=== PATIENT | male | born 1960 | race Caucasian/White ===

== ENCOUNTER 2022-04-19 15:11 | Outpatient (CLI) | payer BC ==
[2022-04-19 15:57] LABS: #Basophils 0.1 10x3/uL (0.0-0.2); #Eosinphils 0.4 10x3/uL (0.0-0.5); #Monocytes 1.1 10x3/uL (0.0-1.1); #Neutrophils 5.3 10x3/uL (1.5-8.4); %Basophils 0.8 % (0.0-2.0); %Eosinophils 4.2 % (0.0-6.0); %Lymphocytes 19.8 % (18.0-47.0); %Monocytes 12.5 % (0.0-10.0); %Neutrophils 62.3 % (40.0-75.0); Hemoglobin 13.4 g/dL (13.5-17.5); Mean Corpuscular HGB CONC 33.8 g/dL (32.0-36.0); Mean Corpuscular Hemoglobin 34.7 pg (27.0-33.0); Mean Corpuscular Volume 102.8 fl (81.2-95.1); Mean Platelet Volume 8.2 fl (7.4-10.4); Platelet Count 357 10x3/uL (150-450); RBC Distribution Width 11.2 % (11.5-14.5); Red Blood Cell (RBC) Count 3.86 10x6/uL (4.32-5.72); White Blood Cell (WBC) Count 8.4 10x3/uL (3.5-10.5)
[2022-04-19 16:03] LABS: INR-International Normal Ratio 0.9; Prothrombin Time 10.1 sec (9.5-12.1)
[2022-04-19 16:08] LABS: Anion Gap 15 mmol/L (10-20); BUN (Urea Nitrogen) 14 mg/dL (8.4-25.7); Calc. Creatinine Clearance 0 mL/min (70-130); Carbon Dioxide 22 mmol/L (23-31); Chloride 103 mmol/L (98-107); Glucose 92 mg/dL (80-115); Potassium 4.8 mmol/L (3.5-5.1); Sodium 135 mmol/L (136-145)
[2022-04-20 00:19] LABS: SARS-CoV-2 PCR by NAA Not Detected (NotDetected)
== END 2022-04-19 15:12 | disposition home or self-care (01) ==
LOC: LABBT 15:11
PROVIDERS: ATTEND Orthopaedic Surgery
DX: Z01.812 Encounter for preprocedural laboratory examination (principal); M23.91 Unspecified internal derangement of right knee; M17.11 Unilateral primary osteoarthritis, right knee; Z20.822 Contact with and (suspected) exposure to COVID-19
CPT/HCPCS: 80048; 85025; 85610; 87081; U0003; U0005

== ENCOUNTER 2022-04-24 05:28 | Observation (INO) | payer BC ==
[2022-04-20 09:21] VITALS: BMI 22.9
[2022-04-24] MEDS ORDERED: Vancomycin 1 GM/200 ML BAG ONE (05:53)
[2022-04-24] MEDS ORDERED: Sodium Chloride 0.9% 100 ML ONE ×2 (05:53→06:51)
[2022-04-24] MEDS ORDERED: Tranexamic Acid 1,000 MG/10 ML VIAL ONE (05:53)
[2022-04-24] MEDS ORDERED: Lidocaine 1% PF 5 ML VIAL ONE (06:35)
[2022-04-24] MEDS ORDERED: ePHEDrine 50 MG/ML VIAL ONE (06:35)
[2022-04-24] MEDS ORDERED: Dexamethasone 20 MG/5 ML VIAL ONE (06:35)
[2022-04-24] MEDS ORDERED: Ondansetron PF 4 MG/2 ML Vial ONE (06:35)
[2022-04-24] MEDS ORDERED: Ketorolac Tromethamine 30 MG/ML VIAL ONE (06:35)
[2022-04-24] MEDS ORDERED: Bupivacaine HCl 0.5%/Epinephrine 1:200,000/PF 30 ml Vial ONE (06:35)
[2022-04-24] MEDS ORDERED: PROPOFOL 200 MG/20 ML VIAL ONE (06:35)
[2022-04-24] MEDS ORDERED: Fentanyl 100 MCG/2 ML VIAL ONE (06:38)
[2022-04-24] MEDS ORDERED: Midazolam HCl 2 mg/2 ml Vial ONE (06:38)
[2022-04-24] MEDS ORDERED: Bupivacaine PF 0.5% 30 ML VIAL ONE (06:46)
[2022-04-24] MEDS ORDERED: CEFAZOLIN 2 GM VIAL ONE (06:51)
[2022-04-24] MEDS ORDERED: fentaNYL Citrate/PF 100 MCG/2 ML SYRINGE ONE ×2 (07:14→08:22)
[2022-04-24] MEDS ORDERED: Fentanyl 100 MCG/2 ML VIAL IV PRN (07:17)
[2022-04-24] MEDS ORDERED: Ropivacaine 0.2% 550 ML 550 ML NERVE BLCK SCH (07:30)
[2022-04-24] MEDS ORDERED: Zolpidem Tartrate 5 MG TAB PO PRN (07:30)
[2022-04-24] MEDS ORDERED: traMADol HCl 50 MG TAB PO PRN ×2 (07:30)
[2022-04-24] MEDS ORDERED: Ondansetron PF 4 MG/2 ML Vial IVP PRN (07:30)
[2022-04-24] MEDS ORDERED: Promethazine HCl 25 MG/ML VIAL IM PRN ×2 (07:30→07:56)
[2022-04-24] MEDS ORDERED: Meperidine HCl/PF 25 MG/ML VIAL SLOW IVP PRN (07:56)
[2022-04-24] MEDS ORDERED: HYDROmorphone 2 MG/ML VIAL SLOW IVP PRN (07:56)
[2022-04-24] MEDS ORDERED: Promethazine HCl 25 MG/ML VIAL IVPB PRN (07:56)
[2022-04-24] MEDS ORDERED: HYDROmorphone 0.5 MG/0.5 ML SYRINGE ONE ×2 (09:05→09:30)
[2022-04-24] MEDS ORDERED: ceFAZolin 2 GM/Dextrose 50 ML 2 GM in Premix Bag 1 BAG IVPB SCH (09:16)
[2022-04-24] MEDS ORDERED: Acetaminophen 325 MG TAB PO PRN (09:16)
[2022-04-24] MEDS: Sodium Chloride 0.9% 1,000 ML IV SCH ×2 (10:59→23:59)
[2022-04-24] MEDS: Ketorolac Tromethamine 30 MG/ML VIAL IVP SCH ×2 (11:20→17:18)
[2022-04-24] MEDS: CEFAZOLIN 2 GM in Sodium Chloride 0.9% 100 ML IVPB SCH ×2 (13:51→21:07)
[2022-04-24] MEDS: HYDROcodone/Acetaminophen 10/325 mg Tablet PO PRN ×3 (13:54→21:10)
[2022-04-24] MEDS ORDERED: Vancomycin 1 GM in Premix Bag 1 BAG IVPB SCH (18:00)
[2022-04-24] MEDS: Aspirin 81 mg Enteric Coated Tablet PO SCH (21:07)
[2022-04-24] MEDS: busPIRone HCl 10 MG TAB PO SCH (21:08)
[2022-04-24] MEDS: Ferrous Gluconate 324 MG TAB PO SCH (21:09)
[2022-04-24] MEDS: Senokot S 8.6-50 MG TAB PO SCH (21:09)
[2022-04-25] MEDS: Ketorolac Tromethamine 30 MG/ML VIAL IVP SCH ×3 (00:18→12:07)
[2022-04-25 06:13] LABS: Hemoglobin 10.4 g/dL (14.0-18.0); Mean Corpuscular HGB CONC 33.2 g/dL (32.0-36.0); Mean Corpuscular Hemoglobin 35.9 pg (27.0-31.0); Mean Platelet Volume 5.6 fL (7.4-10.4); Platelet Count 308 thou/uL (130-400); RBC Distribution Width 10.6 % (11.5-14.5); Red Blood Cell (RBC) Count 2.91 mill/uL (4.70-6.10); White Blood Cell (WBC) Count 10.1 thou/uL (4.8-10.8)
[2022-04-25] MEDS: Sodium Chloride 0.9% 1,000 ML IV SCH ×2 (06:33→16:13)
[2022-04-25] MEDS ORDERED: Multivitamin W/ Minerals 1 TAB PO SCH (09:00)
[2022-04-25] MEDS: Aspirin 81 mg Enteric Coated Tablet PO SCH (10:29)
[2022-04-25] MEDS: Ferrous Gluconate 324 MG TAB PO SCH (10:29)
[2022-04-25] MEDS: Senokot S 8.6-50 MG TAB PO SCH (10:29)
[2022-04-25] MEDS: busPIRone HCl 10 MG TAB PO SCH (10:29)
[2022-04-25] MEDS: HYDROcodone/Acetaminophen 10/325 mg Tablet PO PRN ×2 (12:04→16:10)
[2022-04-25 15:19] VITALS: BP 144/74; TEMP 97.6
== END 2022-04-25 17:26 | disposition home health service (06) ==
LOC: SDC 05:28 → SURG B 10:21 → EDSTATUS 15:30
PROVIDERS: ADMIT Orthopaedic Surgery; ATTEND Orthopaedic Surgery
PROC: 0SRC0J9 Replacement of Right Knee Joint with Synthetic Substitute, Cemented, Open Approach (ICD-10-PCS; principal; 2022-04-24)
PROC: 3E0T3BZ Introduction of Anesthetic Agent into Peripheral Nerves and Plexi, Percutaneous Approach (ICD-10-PCS; 2022-04-24)
DX: M17.11 Unilateral primary osteoarthritis, right knee (principal); M21.161 Varus deformity, not elsewhere classified, right knee; I10 Essential (primary) hypertension; Z79.1 Long term (current) use of non-steroidal anti-inflammatories (NSAID); Z79.899 Other long term (current) drug therapy; Z88.8 Allergy status to other drugs, medicaments and biological substances; Z91.041 Radiographic dye allergy status; Z91.048 Other nonmedicinal substance allergy status; Z98.1 Arthrodesis status
CPT/HCPCS: 36415; 85027; 96374; 96375; 96376; A4306; C1713; C1776; G0378; J1100; J1170; J1885; J2250; J2405; J2704; J2795; J3010; J3370; J3490; S0020

== ENCOUNTER 2023-11-05 08:02 | Outpatient (CLI) | payer BC, MEDICARE ==
[2023-11-05 09:47] LABS: #Basophils 0.1 10x3/uL (0.0-0.2); #Eosinphils 0.8 10x3/uL (0.0-0.5); #Monocytes 0.9 10x3/uL (0.0-1.1); #Neutrophils 3.4 10x3/uL (1.5-8.4); %Basophils 1.2 % (0.0-2.0); %Eosinophils 12.7 % (0.0-6.0); %Lymphocytes 19.1 % (18.0-47.0); %Neutrophils 52.4 % (40.0-75.0); Hematocrit 39.6 % (38.8-50.0); Hemoglobin 14.1 g/dL (13.5-17.5); Mean Corpuscular HGB CONC 35.6 g/dL (32.0-36.0); Mean Corpuscular Hemoglobin 35.1 pg (27.0-33.0); Mean Corpuscular Volume 98.5 fl (81.2-95.1); Mean Platelet Volume 8.4 fl (7.4-10.4); Platelet Count 411 10x3/uL (150-450); RBC Distribution Width 11.3 % (11.5-14.5); Red Blood Cell (RBC) Count 4.02 10x6/uL (4.32-5.72); White Blood Cell (WBC) Count 6.6 10x3/uL (3.5-10.5)
[2023-11-05 10:07] LABS: Anion Gap 16 mmol/L (10-20); BUN (Urea Nitrogen) 8 mg/dL (8.4-25.7); Calc. Creatinine Clearance 0 mL/min (70-130); Calcium 9.3 mg/dL (7.8-10.44); Carbon Dioxide 21 mmol/L (23-31); Chloride 100 mmol/L (98-107); Estimated GFR 100; Glucose 93 mg/dL (80-115); Potassium 4.6 mmol/L (3.5-5.1); Sodium 132 mmol/L (136-145)
[2023-11-05 10:12] LABS: Prothrombin Time 10.3 sec (9.5-12.1)
== END 2023-11-05 08:03 | disposition home or self-care (01) ==
LOC: LABBT 08:02
PROVIDERS: ATTEND Orthopaedic Surgery
DX: Z01.818 Encounter for other preprocedural examination (principal); S46.011A Strain of muscle(s) and tendon(s) of the rotator cuff of right shoulder, initial encounter
CPT/HCPCS: 80048; 85025; 85610; 93005; 93010

== ENCOUNTER 2023-11-07 05:44 | Observation (INO) | payer BC, MEDICARE ==
[2023-11-07] MEDS ORDERED: Tranexamic Acid 1,000 MG/10 ML VIAL ONE (06:10)
[2023-11-07] MEDS ORDERED: Vancomycin 1 GM/200 ML (FROZEN) BAG ONE (06:10)
[2023-11-07] MEDS ORDERED: Sodium Chloride 0.9% 100 ML ONE ×2 (06:10→06:50)
[2023-11-07] MEDS ORDERED: Ropivacaine 0.2% HCl/PF 20 ML ONE (06:25)
[2023-11-07] MEDS ORDERED: fentaNYL 50 mcg/mL 1 mL Vial ONE ×2 (06:25→10:43)
[2023-11-07] MEDS ORDERED: Midazolam HCl 2 mg/2 ml Vial ONE (06:25)
[2023-11-07] MEDS ORDERED: Ropivacaine 0.5% HCl/PF (150 MG/30 ML VIAL) ONE (06:25)
[2023-11-07] MEDS ORDERED: Lidocaine 1% (PF) 30 ML VIAL ONE (06:40)
[2023-11-07] MEDS ORDERED: CEFAZOLIN 2 GM VIAL ONE (06:50)
[2023-11-07] MEDS ORDERED: PROPOFOL 40 ML ONE (07:08)
[2023-11-07] MEDS ORDERED: Esmolol 100 MG/10 ML VIAL ONE (07:10)
[2023-11-07] MEDS ORDERED: Dexamethasone 20 MG/5 ML VIAL ONE (07:10)
[2023-11-07] MEDS ORDERED: Ondansetron PF 4 MG/2 ML Vial ONE (07:10)
[2023-11-07] MEDS ORDERED: Thrombin 5000 UNITS/5 ML VIAL ONE (07:59)
[2023-11-07] MEDS ORDERED: fentaNYL 50 mcg/mL 1 mL Vial SLOW IVP PRN (08:19)
[2023-11-07] MEDS ORDERED: traMADol HCl 50 MG TAB PO PRN ×2 (08:30)
[2023-11-07] MEDS ORDERED: Ondansetron PF 4 MG/2 ML Vial IVP PRN (08:30)
[2023-11-07] MEDS ORDERED: Promethazine HCl 25 MG/ML VIAL IM PRN (08:30)
[2023-11-07] MEDS ORDERED: Ropivacaine 0.2% 550 ML 550 ML NERVE BLCK SCH (08:30)
[2023-11-07] MEDS ORDERED: HYDROcodone/Acetaminophen 10/325 mg Tablet PO PRN ×2 (08:30)
[2023-11-07] MEDS ORDERED: Zolpidem Tartrate 5 MG TAB PO PRN (08:30)
[2023-11-07] MEDS ORDERED: Rocuronium Bromide 10 MG/ML (10ML VIAL) ONE (08:38)
[2023-11-07] MEDS ORDERED: Lidocaine 2% PF 5 ML VIAL ONE (08:39)
[2023-11-07] MEDS ORDERED: ePHEDrine Sulfate 50 MG/10 ML VIAL ONE (09:00)
[2023-11-07] MEDS ORDERED: SUGAMMADEX SODIUM 200 MG/2 ML VIAL ONE (09:02)
[2023-11-07] MEDS ORDERED: Ketorolac Tromethamine 30 MG/ML VIAL ONE (09:12)
[2023-11-07] MEDS ORDERED: PHENYLEPHRINE-NS 100 MCG/ML 10 ML SYRINGE ONE (09:27)
[2023-11-07] MEDS ORDERED: Methocarbamol 500 MG TAB PO PRN (10:02)
[2023-11-07] MEDS ORDERED: Milk Of Magnesia 30 ML UDCUP PO PRN (10:02)
[2023-11-07] MEDS ORDERED: Acetaminophen 325 MG TAB PO PRN (10:02)
[2023-11-07] MEDS ORDERED: Methocarbamol 1 GM/10 ML VIAL SLOW IVP PRN (10:02)
[2023-11-07] MEDS ORDERED: Bisacodyl 10 MG SUPP PR PRN (10:02)
[2023-11-07] MEDS ORDERED: Ketorolac Tromethamine 30 MG/ML VIAL IVP SCH (12:00)
[2023-11-07] MEDS: Lactated Ringer's 1,000 ML IV SCH (13:30)
[2023-11-07] MEDS: CEFAZOLIN 2 GM in Sodium Chloride 0.9% 100 ML IVPB SCH ×2 (16:19→23:30)
[2023-11-07 16:45] VITALS: BMI 25.2
[2023-11-07] MEDS: Ketorolac Tromethamine 30 MG/ML VIAL IVP SCH ×2 (18:08→23:31)
[2023-11-07] MEDS: Famotidine 20 MG TAB PO SCH (20:35)
[2023-11-07] MEDS: busPIRone HCl 10 MG TAB PO SCH (20:35)
[2023-11-08] MEDS: Lactated Ringer's 1,000 ML IV SCH (02:45)
[2023-11-08] MEDS: Ketorolac Tromethamine 30 MG/ML VIAL IVP SCH (05:44)
[2023-11-08 08:13] VITALS: BP 114/75; TEMP 98.2
[2023-11-08] MEDS ORDERED: Oxybutynin 5 MG TAB PO SCH (09:00)
[2023-11-08] MEDS ORDERED: Amlodipine 10 MG TAB PO SCH (09:00)
[2023-11-08] MEDS ORDERED: Lisinopril 20 MG TAB PO SCH (09:00)
[2023-11-08] MEDS: busPIRone HCl 10 MG TAB PO SCH (09:06)
[2023-11-08] MEDS: Famotidine 20 MG TAB PO SCH (09:06)
== END 2023-11-08 10:40 | disposition home or self-care (01) ==
LOC: SDC 05:44 → SURG A 10:02
PROVIDERS: ADMIT Orthopaedic Surgery; ATTEND Orthopaedic Surgery
PROC: 0RRJ0JZ Replacement of Right Shoulder Joint with Synthetic Substitute, Open Approach (ICD-10-PCS; principal; 2023-11-07)
DX: S46.011A Strain of muscle(s) and tendon(s) of the rotator cuff of right shoulder, initial encounter (principal); I10 Essential (primary) hypertension; Z88.8 Allergy status to other drugs, medicaments and biological substances; Z96.659 Presence of unspecified artificial knee joint; Z79.899 Other long term (current) drug therapy; Y83.9 Surgical procedure, unspecified as the cause of abnormal reaction of the patient, or of later complication, without mention of misadventure at the time of the procedure
CPT/HCPCS: A4306; C1713; C1776; J1100; J1885; J2001; J2250; J2405; J2704; J2795; J3010; J3370-JW; J3490; J7120

== ENCOUNTER 2024-08-13 12:30 | Outpatient (CLI) | payer BC, MEDICARE | END 2024-08-13 12:31 | disposition home or self-care (01) | LOC: PET 12:30 | PROVIDERS: ATTEND Urology | DX: C61 Malignant neoplasm of prostate (principal); R94.8 Abnormal results of function studies of other organs and systems | CPT/HCPCS: 78815; A9552; A9595 ==